=== PATIENT | male | born 1985 | race African-American/Black ===

== ENCOUNTER 2017-09-20 20:48 | Emergency (ER) | payer MEDICAID ==
[~2017-09-20] VITALS: Ht 182.9 cm; Wt 82.0 kg
[2017-09-20] MEDS ORDERED: ACETAMINOPHEN WITH CODEINE 300/30MG TABLET PO ONE (21:30)
[2017-09-20] MEDS ORDERED: TETANUS, DIPHTHERIA, PERTUSSIS VAC/PF 0.5ML (>7YR OLD) IM ONE (21:30)
[2017-09-20 23:51] VITALS: BP 127/78
== END 2017-09-20 23:56 | disposition home or self-care (01) ==
LOC: ER 20:48
DX: S61.511A Laceration without foreign body of right wrist, initial encounter (principal); J45.909 Unspecified asthma, uncomplicated; F17.200 Nicotine dependence, unspecified, uncomplicated; W25.XXXA Contact with sharp glass, initial encounter; Y93.G1 Activity, food preparation and clean up; Y92.9 Unspecified place or not applicable
CPT/HCPCS: 90715; 99283